=== PATIENT | female | born 1995 | race Hispanic/Latino ===

== ENCOUNTER 2017-06-10 20:04 | Emergency (ER) | payer BC, OTHER ==
[2017-06-10 20:27] LABS: Bilirubin Negative (Negative); Blood, Urine Negative (Negative); Clarity CLEAR (Clear); Glucose, Urine (Dipstick) Negative (Negative); Leukocyte Negative (Negative); Nitrite Negative (Negative); Protein, Urine (Dipstick) Negative (Neg-Trace); Specific Gravity, Urine 1.028 (1.002-1.036); Urobilinogen 0.2 mg/dL (0.2-1.0); pH, Urine 6.5 (5.0-9.0)
[2017-06-10 20:29] LABS: Pregnancy Test - Urine (BHCG) Negative (Negative); Pregu Control Background? CLEAR/WHITE (CLR/WHITE); Pregu Control Bar Appear? YES (CONTROL BAR); Specific Gravity 1.028 (1.002-1.036)
[2017-06-10 23:04] LABS: #Lymphocytes 0.9 thou/uL (1.20-3.40); #Monocytes 0.4 thou/uL (0.11-0.59); #Neutrophils 7.6 thou/uL (1.40-6.50); %Basophils 0.1 % (0.0-1.0); %Eosinophils 0.2 % (0.0-10.0); %Lymphocytes 10.2 % (28.0-48.0); %Monocytes 4.8 % (0.0-4.0); %Neutrophils 84.8 % (31.0-61.0); Hemoglobin 14.1 g/dL (12.0-16.0); Mean Corpuscular HGB CONC 34.6 g/dL (32.0-36.0); Mean Corpuscular Hemoglobin 29.5 pg (25.0-35.0); Mean Corpuscular Volume 85.3 fl (77.0-87.0); Mean Platelet Volume 7.1 fL (7.4-10.4); Platelet Count 300 thou/uL (130-400); RBC Distribution Width 12.3 % (11.5-14.5); Red Blood Cell (RBC) Count 4.78 mill/uL (4.00-5.20); White Blood Cell (WBC) Count 8.9 thou/uL (4.8-10.8)
[2017-06-10] MEDS ORDERED: Ketorolac Tromethamine 30 MG/ML VIAL ONE (23:15)
[2017-06-10 23:21] LABS: ALT (SGPT) 14 U/L (8-55); AST (SGOT) 16 U/L (5-34); Albumin 4.3 g/dL (3.5-5.0); Alkaline Phosphatase 137 U/L (40-150); Anion Gap 14 mmol/L (10-20); BUN (Urea Nitrogen) 8 mg/dL (7.0-18.7); Bilirubin, Total 0.6 mg/dL (0.2-1.2); Calc. Creatinine Clearance 0 mL/min (70-130); Calcium 9.1 mg/dL (7.8-10.44); Carbon Dioxide 20 mmol/L (22-29); Chloride 106 mmol/L (98-107); Estimated GFR-MDRD Greater than 90; Globulin 3.3 g/dL (2.4-3.5); Glucose 119 mg/dL (70-105); Potassium 3.9 mmol/L (3.5-5.1); Protein, Total 7.6 g/dL (6.0-8.3); Sodium 136 mmol/L (136-145)
== END 2017-06-11 00:42 | disposition home or self-care (01) ==
LOC: ERS 20:04
DX: B34.9 Viral infection, unspecified (principal)
CPT/HCPCS: 36415; 80053; 81003; 81025; 85025; 96361; 96374; J1885

== ENCOUNTER 2018-04-25 14:57 | Day surgery (SDC) | payer OTHER ==
[2018-04-25 15:34] VITALS: BP 127/69; TEMP 98.8; BMI 30.1
--- NOTE | 2018-04-25 15:37 | PDOC.LDHP ---
Labor and Delivery H&P HPI: Sent from [facility] by Dr Armenta for FFN results, collected from clinic Patient is a 23 yo HF at 33 weeks 3 days by LMP and first trimester sono , here for follow up from OBGYN. Was 1cm in clinic (/). Feels "pops" in her pubic bone. Some decresaed FM but now normal. Few contractions, few today. No LOF, No VB Review of Systems: Anemia in Grav: 3 Para: 1 Current complications: none Abnormal US findings: No Past Medical History: Anemia Past [employer]: BV treated Current medications: pre-agnes vitamins, iron Previous surgical history: other (Eye surgery as child (age 6)) Allergies/Adverse Reactions: Allergies Allergy/AdvReac Type Severity Reaction Status Date / Time Penicillins Allergy Unknown Verified 04/25/18 15:35 - Physical Exam Vital signs reviewed and normal: yes (98.8 101 127/69) General: NAD Heart: RRR Lungs: CTAB Abdomen: other (no CVAT, no deformities) Extremeties: no edema FHT: category 1 (140s) [place] contractions every: rare - OB Labs Blood type: O (pos) Additional Labs: FFN negative today - Assessment Multip at 33 weeks with discomforts of preg vs laxity of joints (prob mild sympisus diastasis). FFN negative. At age 18, questionable "pelvic injury" after fall. Possible fractured coccyx in past. Here for Hydration. Urine was negative in clinic. Dr armenta has scheduled an outpatient XRay of pelvis one shot - Plan Plan: observation in L&D (1 liter LR; NST ordered; FFN negative and under 2cm so PTL not likely. Will get single shot pubic film for eval oif her complaint.)
[2018-04-25] MEDS ORDERED: Lactated Ringer's 1,000 ML IV SCH (15:45)
--- NOTE | 2018-04-25 16:05 | PDOC.EVN ---
Event Note - Event Note Event Note: One shot pubic film done...I saw the image...no gross abnormalities (pending formal read). I reassured the patient that a one shot image has no risks. Patient ok with test. IVF hydation in use Doing well
--- NOTE | 2018-04-25 17:11 | RAD ---
AP PELVIS ONE VIEW: 04/25/18 HISTORY: Evaluate for pubic diastasis. FINDINGS/IMPRESSION: Pubic symphysis is 0.7 cm gap, minimally widened. Single intrauterine gestation is apparent in cephalic presentation. POS: [facility]
--- NOTE | 2018-04-25 17:22 | PDOC.EVN ---
Event Note - Event Note Event Note: Radiology read is normal
== END 2018-04-25 17:21 | disposition home or self-care (01) ==
LOC: L&D/OP 14:57
PROVIDERS: ATTEND Obstetrics & Gynecology
DX: O47.03 False labor before 37 completed weeks of gestation, third trimester (principal); O99.013 Anemia complicating pregnancy, third trimester; Z88.0 Allergy status to penicillin; Z3A.33 33 weeks gestation of pregnancy
CPT/HCPCS: 72170

== ENCOUNTER → 2018-05-18 | Day surgery (SDC) | payer OTHER ==
[2018-05-18 06:04] VITALS: BP 108/62; TEMP 98.2; BMI 31.8
--- NOTE | 2018-05-18 06:22 | PDOC.LDHP ---
Labor and Delivery H&P Chief complaint: contractions, decreased movement HPI: 23 yo @ 36.4 presents for decreased movment. Pt reports she has had sporadic painful contractions sine last Saturday, but they have decreased in severity and frequency; however, this AM she reports occasional ctx and noted decreased FM overnight when she would wake up to use the restroom. She also noted some pressure earlier in the morning. Currently, pt reports resolution of pressure, decreasing ctx frequency and reports she has pos movement now. Denies LOF, vaginal bleeding and vaginal discharge. Of note, no palpable ctx or detectable ctx by external monitors. Current gestational age (weeks): 36 (36.4) Due date: 06/11/18 Dating criteria: last menstrual period, first trimester ultrasound Grav: 3 Para: 1 (1011) Current complications: none Abnormal US findings: No Current medications: pre- vitamins Previous surgical history: none Allergies/Adverse Reactions: Allergies Allergy/AdvReac Type Severity Reaction Status Date / Time Penicillins Allergy Unknown Verified 04/25/18 15:35 Social history: none - Physical Exam Vital signs reviewed and normal: yes General: NAD, resting Heart: RRR Lungs: nonlabored breathing Abdomen: gravid (NNTP, Normoactive BSX4) Extremeties: trace edema FHT: category 1 (Baseline 140s pos accels, no late or variable decels. Mod variaibility. Reactive.), variability present [place] contractions every: None - OB Labs Blood type: O RH: positive Antibody Screen: negative HIV: negative RPR: negative HEPSAg: negative 1 hour GCT: negative GBS: negative Urine drug screen: negative Rubella: immune - Assessment 1) Decreased movement, resolved - strip reactive and pt now reports normal movement - will continue to monitor to ensure no contractions although thus far none detected by ext monitor and none palpated Dispo: stable, will monitor and plan for DC to home if no ctx over next 30 minutes. PO hydrate. Addendum - Attending - Attending Attestation Date/Time: 05/20/181999 I personally evaluated the patient and discussed the management with Dr. Davidson. I agree with the History, Examination, Assessment and Plan documented above.
== END ==
LOC: L&D/OP 05:32
PROVIDERS: ATTEND Obstetrics & Gynecology
DX: O36.8130 Decreased fetal movements, third trimester, not applicable or unspecified (principal); Z3A.36 36 weeks gestation of pregnancy; Z79.899 Other long term (current) drug therapy; Z88.0 Allergy status to penicillin

== ENCOUNTER 2018-05-28 15:07 | Day surgery (SDC) | payer OTHER ==
[2018-05-28 15:39] VITALS: BP 112/69; TEMP 98.6
[2018-05-28 15:42] VITALS: BMI 32.2
--- NOTE | 2018-05-28 16:32 | PDOC.LDHP ---
Labor and Delivery H&P Chief complaint: contractions HPI: 23 y/o at 38w4d, patient of Dr. Kwan, presents with ctx and dizziness today. Was checked in clinic today and 3-4 cm, has been walking all day and not eating/drinking. Denies VB, LOF, or decreased FM. ROS neg for HEENT, cv, pulm, gi, gu, neuro, psych, musculoskeletal, skin or constitutional symptoms other than mentioned above. OB History Details: 1 prior term Current complications: none Current medications: pre- vitamins Previous surgical history: other (eye surgery) Allergies/Adverse Reactions: Allergies Allergy/AdvReac Type Severity Reaction Status Date / Time Penicillins Allergy Unknown Verified 05/28/18 15:41 Social history: none - Physical Exam Vital signs reviewed and normal: yes General: NAD, resting Lungs: nonlabored breathing Abdomen: gravid Extremeties: no edema FHT: category 1 (130s, mod variability, + accels, no decels) [place] contractions every: intermittent - Vaginal Exam cm dilated: 3 Effacement: 50% Station: -1 - Assessment 23 y/o at 38w0d with no e/o active labor. status reassuring with reactive NST. - Plan -: D/c home with precautions and advised to keep appointments,. Next appointment tomorrow.
== END 2018-05-28 16:10 | disposition home or self-care (01) ==
LOC: L&D/OP 15:07
PROVIDERS: ATTEND Obstetrics & Gynecology
DX: O47.1 False labor at or after 37 completed weeks of gestation (principal); Z3A.38 38 weeks gestation of pregnancy; Z88.0 Allergy status to penicillin; Z79.899 Other long term (current) drug therapy
CPT/HCPCS: 99282

== ENCOUNTER 2018-06-05 05:30 | Inpatient (IN) | payer OTHER ==
--- NOTE | 2018-06-04 13:13 | PDOC.LDHP ---
Labor and Delivery H&P Chief complaint: scheduled induction HPI: 23 yo @ 39w1d by LMP c/w 11 week CRL who presents for EIOL. Antepartum course complicated by mild anemia, on iron. Current gestational age (weeks): 39 Due date: 06/11/18 Dating criteria: last menstrual period Grav: 3 Para: 1 OB History Details: 1 term 1 SAB Current complications: none Abnormal US findings: No Past Medical History: Anemia Current medications: pre-agnes vitamins, iron, other (Nexium) Previous surgical history: other (Eye surgery) Allergies/Adverse Reactions: Allergies Allergy/AdvReac Type Severity Reaction Status Date / Time Penicillins Allergy Unknown Verified 06/05/18 05:57 Social history: none - Physical Exam Vital signs reviewed and normal: yes General: NAD Heart: RRR Lungs: nonlabored breathing Abdomen: gravid Extremeties: no edema - Vaginal Exam cm dilated: 5 (cephalic; AROM clear ) Effacement: 75% Station: -1 - OB Labs Blood type: O RH: positive Antibody Screen: negative HIV: negative RPR: negative HEPSAg: negative 1 hour GCT: negative GBS: negative Urine drug screen: negative Rubella: non-immune - Assessment 39w1d IUP Elective induction Anemia Rubella non-immune - Plan Plan: admit to L&D, informed consent obtained, anesthesia consult for pain management -: Start pitocin MMR PP
[2018-06-05] MEDS ORDERED: Misoprostol 200 MCG TAB PR PRN (05:55)
[2018-06-05] MEDS ORDERED: Methylergonovine 0.2 MG/ML VIAL IM PRN (05:55)
[2018-06-05] MEDS ORDERED: Butorphanol Tartrate 1 MG/ML VIAL SLOW IVP PRN (05:55)
[2018-06-05] MEDS ORDERED: Acetaminophen 500 MG TAB PO PRN (05:55)
[2018-06-05] MEDS ORDERED: Diphenoxylate HCl/Atropine Tablet PO PRN (05:55)
[2018-06-05] MEDS ORDERED: Lidocaine 1% (PF) 30 ML VIAL SC PRN (05:55)
[2018-06-05] MEDS ORDERED: Ondansetron PF 4 MG/2 ML Vial IVP PRN ×2 (05:55→09:39)
[2018-06-05] MEDS ORDERED: Carboprost 250 MCG/ML AMP IM PRN (05:55)
[2018-06-05] MEDS ORDERED: Ibuprofen 800 MG TAB PO PRN (05:55)
[2018-06-05] MEDS ORDERED: NS w/ Oxytocin 10 units 500 ML IV SCH (05:55)
[2018-06-05] MEDS ORDERED: Promethazine HCl 25 MG/ML VIAL IM PRN ×2 (05:55→09:39)
[2018-06-05] MEDS ORDERED: NS / Oxytocin 40 units/1000ml 1,000 ML IV PRN (05:55)
[2018-06-05] MEDS ORDERED: HYDROcodone/Acetaminophen 5/325 mg Tablet PO PRN ×2 (05:55→10:58)
[2018-06-05 05:59] VITALS: BMI 32.2
[2018-06-05] MEDS: Lactated Ringer's 1,000 ML IV SCH ×2 (06:00→08:59)
[2018-06-05 06:17] LABS: Hemoglobin 10.1 g/dL (12.0-16.0); Mean Corpuscular HGB CONC 32.4 g/dL (32.0-36.0); Mean Corpuscular Hemoglobin 26.5 pg (27.0-31.0); Mean Corpuscular Volume 81.9 fL (78.0-98.0); Mean Platelet Volume 7.8 fL (7.4-10.4); Platelet Count 337 thou/uL (130-400); RBC Distribution Width 13.4 % (11.5-14.5); Red Blood Cell (RBC) Count 3.81 mill/uL (4.20-5.40)
[2018-06-05 07:00] LABS: Syphilis Antibody Nonreactive (Nonreactive); Syphilis Antibody Index 0.09 S/CO (<1.00 Non-Reactive)
[2018-06-05 07:01] LABS: HBSAg Index 0.27 S/CO (0-0.99); HIV (1/2) Antibody/Antigen Non-Reactive (NonReactive); HIV 1/2 INDEX 0.08 S/CO (<1.00); Hep B Surf Ag Non-Reactive S/CO (NonReactive)
[2018-06-05] MEDS ORDERED: Lidocaine 2% 10 ML INJ ONE (08:08)
[2018-06-05] MEDS ORDERED: Fentanyl 4 mcg/Bup 0.1% Cadd 100 ML ONE (08:09)
[2018-06-05] MEDS ORDERED: Naloxone HCl 0.4 mg/ml Vial IVP PRN ×2 (09:39)
[2018-06-05] MEDS ORDERED: diphenhydrAMINE 50 MG/ML VIAL IVP PRN (09:39)
[2018-06-05] MEDS ORDERED: Eucerin (Mineral Oil/Petrolatum,White) 30 gm Jar TOP PRN (09:39)
[2018-06-05] MEDS ORDERED: Lactated Ringer's 500 ML IV PRN (09:39)
[2018-06-05] MEDS ORDERED: ePHEDrine/0.9% NaCl/PF SYRINGE 50 mg/10 ml SLOW IVP PRN (09:39)
[2018-06-05] MEDS ORDERED: Acetaminophen 325 MG TAB PO PRN (09:39)
[2018-06-05] MEDS ORDERED: Fentanyl 4 mcg/Bupivacaine 0.1% Cassette 100 ML EPIDURAL SCH (09:45)
[2018-06-05] MEDS ORDERED: Communication Order-Pharmacy FS SCH (09:45)
--- NOTE | 2018-06-05 10:36 | PDOC.OPDEL ---
OB Operative/Delivery Note Delivery Dr/Surgeon: Meryl Kwan DO Pre-Delivery Diagnosis: elective induction Procedure/Post Delivery Dx: spontaneous vaginal delivery Weeks gestation: 39 Anesthesia: epidural - Findings A Sex: female - 1 min: 9 - 5 min: 9 - Additional Findings/Plan Placenta delivered: spontaneous Repaired Obstetrical Laceration: none Estimated blood loss: EBL 100 cc; QBL 269 cc Compilations/Other Findings: in cephalic presentation, BRIANNA position. Clear amniotic fluid Normal appearing placenta Post delivery plan: routine recovery
[2018-06-05] MEDS ORDERED: Measles/Mumps/Rubella 10 MCG/0.5 ML VIAL SC ONE (10:58)
[2018-06-05] MEDS ORDERED: NS / Oxytocin 40 units/1000ml 1,000 ML IV SCH (10:58)
[2018-06-05] MEDS ORDERED: Bisacodyl 10 MG SUPP PR PRN (10:58)
[2018-06-05] MEDS ORDERED: Benzocaine-Menthol 82.5 ML CAN TOP PRN (10:58)
[2018-06-05] MEDS ORDERED: diphenhydrAMINE 25 MG CAP PO PRN (10:58)
[2018-06-05] MEDS ORDERED: Preparation H Ointment 28 GM TUBE PR PRN (10:58)
[2018-06-05] MEDS ORDERED: Milk Of Magnesia 30 ML UDCUP PO PRN (10:58)
[2018-06-05] MEDS ORDERED: Lanolin Ointment 7 GM TUBE TOP PRN (10:58)
[2018-06-05] MEDS: Ibuprofen 800 MG TAB PO SCH ×2 (13:25→20:42)
[2018-06-05] MEDS: Ferrous Sulfate 325 MG TAB PO SCH (17:00)
[2018-06-05] MEDS: Docusate Calcium (SURFAK) 240 MG CAP PO SCH (20:42)
[2018-06-06] MEDS: Calcium Carbonate 500 MG ChewTAB PO PRN ×2 (02:48→08:20)
[2018-06-06] MEDS: Lactated Ringer's 1,000 ML IV SCH ×3 (06:40→11:51)
[2018-06-06] MEDS: Ibuprofen 800 MG TAB PO SCH ×2 (06:41→13:41)
[2018-06-06 07:33] VITALS: BP 112/57; TEMP 98.1
[2018-06-06] MEDS: Ferrous Sulfate 325 MG TAB PO SCH (07:52)
--- NOTE | 2018-06-06 08:05 | PDOC.PP ---
Post Progress Note Post Day #: 1 Subjective: No concerns. Breast feeding. Minimal lochia and pain. Voiding. PO intake tolerated: yes Flatus: yes Ambulation: yes Vital Signs (12 hours) Temp Pulse Resp BP Pulse Ox 06/06/18 07:32 98.1 F 65 20 112/57 L 98 06/06/18 00:00 97.6 F 81 16 112/56 L Weight Weight 182 lb - Physical Examination General: NAD Cardiovascular: RRR Respiratory: non-labored breathing Abdominal: no distention, appropriately TTP Extremities: negative homans (B) Neurological: no gross focal deficits Psychiatric: A&Ox3, normal affect Result Diagrams: 06/05/18 06:08 Additional Labs: Post Labs Blood Type O POSITIVE 06/05/18 06:08 Hep Bs Antigen Non-Reactive S/CO (NonReactive) 06/05/18 06:08 (1) Vaginal delivery following previous section, delivered Code(s): O34.219 - MATERNAL CARE FOR UNSP TYPE SCAR FROM PREVIOUS DEL Status: Acute (2) Anemia Code(s): D64.9 - ANEMIA, UNSPECIFIED Status: Acute Qualifiers: Anemia type: iron deficiency Iron deficiency anemia type: inadequate dietary iron intake Qualified Code(s): D50.8 - Other iron deficiency anemias - Assessment/Plan PPD1 VSSAF Plan for d/c home today with infant. Meeting requirements for d/c. PP CBC still pending, however, minimal EBL and chronic mild anemia prior to delivery. Continue Fe PP MMR prior to d/c
[2018-06-06] MEDS: Docusate Calcium (SURFAK) 240 MG CAP PO SCH (08:20)
[2018-06-06] MEDS ORDERED: Prenatal Vitamin 1 TAB PO SCH (09:00)
[2018-06-06 09:04] LABS: Hemoglobin 10.4 g/dL (12.0-16.0); Mean Corpuscular HGB CONC 32.4 g/dL (32.0-36.0); Mean Corpuscular Hemoglobin 27.5 pg (27.0-31.0); Mean Corpuscular Volume 84.7 fL (78.0-98.0); Mean Platelet Volume 7.9 fL (7.4-10.4); Platelet Count 302 thou/uL (130-400); RBC Distribution Width 13.5 % (11.5-14.5); Red Blood Cell (RBC) Count 3.79 mill/uL (4.20-5.40); White Blood Cell (WBC) Count 8.7 thou/uL (4.8-10.8)
== END 2018-06-06 15:10 | disposition home or self-care (01) | DRG 807 ==
LOC: L&D 05:34 → 3SW 13:39
PROVIDERS: ADMIT Obstetrics & Gynecology; ATTEND Obstetrics & Gynecology
PROC: 10E0XZZ Delivery of Products of Conception, External Approach (ICD-10-PCS; principal; 2018-06-05)
DX: O99.02 Anemia complicating childbirth (principal); Z37.0 Single live birth; Z3A.39 39 weeks gestation of pregnancy; D50.8 Other iron deficiency anemias
CPT/HCPCS: 36415; 51702; 85027; 86780; 86850; 86900; 86901; 87340; 87389; 90707; J0595; J2001

== ENCOUNTER 2018-06-24 17:31 | Emergency (ER) | payer OTHER ==
[2018-06-24] MEDS ORDERED: Ibuprofen 800 MG TAB ONE ×2 (18:53→21:19)
[2018-06-24 19:08] LABS: #Lymphocytes 1.2 thou/uL (1.20-3.40); #Monocytes 0.5 thou/uL (0.11-0.59); #Neutrophils 9.4 thou/uL (1.40-6.50); %Basophils 0.1 % (0.0-1.0); %Eosinophils 0.4 % (0.0-10.0); %Lymphocytes 10.5 % (21.0-51.0); %Monocytes 4.6 % (0.0-10.0); %Neutrophils 84.5 % (42.0-75.0); Hemoglobin 12.9 g/dL (12.0-16.0); Mean Corpuscular HGB CONC 32.5 g/dL (32.0-36.0); Mean Corpuscular Hemoglobin 27.4 pg (27.0-31.0); Mean Corpuscular Volume 84.1 fL (78.0-98.0); Mean Platelet Volume 7.8 fL (7.4-10.4); Platelet Count 286 thou/uL (130-400); RBC Distribution Width 14.5 % (11.5-14.5); Red Blood Cell (RBC) Count 4.72 mill/uL (4.20-5.40); White Blood Cell (WBC) Count 11.2 thou/uL (4.8-10.8)
--- NOTE | 2018-06-24 19:10 | RAD ---
Radiograph chest one view: HISTORY: 23-year-old female with sepsis FINDINGS: The visualized lung [place] are clear. The cardiomediastinal silhouette is normal. No pneumothorax. IMPRESSION: No acute cardiopulmonary findings.
[2018-06-24 19:28] LABS: ALT (SGPT) 23 U/L (8-55); AST (SGOT) 17 U/L (5-34); Albumin 4.2 g/dL (3.5-5.0); Alkaline Phosphatase 125 U/L (40-150); Anion Gap 16 mmol/L (10-20); BUN (Urea Nitrogen) 14 mg/dL (7.0-18.7); Bilirubin, Total 0.5 mg/dL (0.2-1.2); Calc. Creatinine Clearance 0 mL/min (70-130); Calcium 9.3 mg/dL (7.8-10.44); Carbon Dioxide 19 mmol/L (22-29); Chloride 105 mmol/L (98-107); Estimated GFR-MDRD Greater than 90; Globulin 3.5 g/dL (2.4-3.5); Glucose 107 mg/dL (70-105); Potassium 3.8 mmol/L (3.5-5.1); Protein, Total 7.7 g/dL (6.0-8.3); Sodium 136 mmol/L (136-145)
--- NOTE | 2018-06-24 20:28 | ULT ---
Ultrasound left breast limited: 06/24/2018 HISTORY: 23-year-old female with left breast pain, erythema, and swelling. Rule out abscess. TECHNIQUE: Ultrasound scanning of the area of concern, from 12:00 to 3:00 position. Ultrasound scanning of the subareolar region. FINDINGS: In the retroareolar region, there are numerous dilated ducts. The caliber of the largest duct is brenda ured as 7 mm. Otherwise, there is no other focal fluid collection to indicate abscess in the left upper outer quadrant. IMPRESSION: 1. Retroareolar ductal ectasia. 2. No abscess identified in the left upper quadrant.
[2018-06-24] MEDS ORDERED: Clindamycin 150 MG CAP PO SCH (21:30)
[2018-06-24] MEDS ORDERED: Clindamycin 150 MG CAP ONE (21:42)
[2018-06-24 21:57] LABS: Bilirubin Negative (Negative); Blood, Urine Negative (Negative); Clarity CLEAR (Clear); Glucose, Urine (Dipstick) Negative (Negative); Leukocyte Moderate (Negative); Nitrite Negative (Negative); Protein, Urine (Dipstick) Negative (Neg-Trace); Specific Gravity, Urine 1.011 (1.002-1.036); Urobilinogen 0.2 mg/dL (0.2-1.0)
[2018-06-24 22:05] LABS: Bacteria/HPF None Seen HPF (None Seen); Hyaline Casts/LPF 0-3 HYALINE CAST LPF (0-3 Hyaline); RBC/HPF 0-3 HPF (0-3); Squamous Epithelial 0-3 HPF (0-3)
[2018-06-24 22:46] LABS: Lactic Acid 0.6 mmol/L (0.5-2.2)
== END 2018-06-24 23:26 | disposition home or self-care (01) ==
LOC: ERS 17:31
DX: N64.4 Mastodynia (principal); Z87.442 Personal history of urinary calculi
CPT/HCPCS: 36415; 71045; 80053; 81003; 81015; 83605; 85025; 87040; 87070; 87086; 87205; 93005; 94760; 96360; 96361

== ENCOUNTER 2018-12-23 18:34 | Day surgery (SDC) | payer OTHER, SELFPAY ==
[2018-12-23] MEDS ORDERED: Morphine 4 MG/ML VIAL ONE (19:00)
[2018-12-23] MEDS ORDERED: Ondansetron PF 4 MG/2 ML Vial ONE ×2 (19:01→19:31)
[2018-12-23 19:13] LABS: #Lymphocytes 1.5 thou/uL (1.20-3.40); #Monocytes 0.8 thou/uL (0.11-0.59); #Neutrophils 14.1 thou/uL (1.40-6.50); %Basophils 0.2 % (0.0-1.0); %Eosinophils 0.1 % (0.0-10.0); %Lymphocytes 9.2 % (21.0-51.0); %Monocytes 4.5 % (0.0-10.0); Hemoglobin 13.9 g/dL (12.0-16.0); Mean Corpuscular HGB CONC 35.3 g/dL (32.0-36.0); Mean Corpuscular Hemoglobin 29.5 pg (27.0-31.0); Mean Corpuscular Volume 83.7 fL (78.0-98.0); Mean Platelet Volume 7.6 fL (7.4-10.4); Platelet Count 284 thou/uL (130-400); RBC Distribution Width 12.2 % (11.5-14.5); Red Blood Cell (RBC) Count 4.71 mill/uL (4.20-5.40); White Blood Cell (WBC) Count 16.4 thou/uL (4.8-10.8)
[2018-12-23] MEDS ORDERED: MEROPENEM 1 GM/50 ML 1 GM in Premix Bag 1 BAG IVPB SCH (19:15)
[2018-12-23 19:30] LABS: BHCG - Serum Negative (NEGATIVE); Pregs Control Background? CLEAR/WHITE (CLR/WHITE); Pregs Control Bar Appear? YES (CONTROL BAR)
[2018-12-23] MEDS ORDERED: Rocuronium Bromide 10 MG/ML (10ML VIAL) ONE (19:31)
[2018-12-23] MEDS ORDERED: Glycopyrrolate 0.2 MG/ML 5 ML SYRINGE ONE (19:31)
[2018-12-23] MEDS ORDERED: PROPOFOL 200 MG/20 ML VIAL ONE (19:31)
[2018-12-23] MEDS ORDERED: Esmolol 100 MG/10 ML VIAL ONE (19:31)
[2018-12-23] MEDS ORDERED: ePHEDrine 50 MG/ML VIAL ONE (19:31)
[2018-12-23] MEDS ORDERED: PHENYLEPHRINE-NS 100 MCG/ML 10 ML SYRINGE ONE (19:31)
[2018-12-23] MEDS ORDERED: Lidocaine 1% PF 5 ML VIAL ONE (19:31)
[2018-12-23] MEDS ORDERED: Dexamethasone 20 MG/5 ML VIAL ONE (19:31)
[2018-12-23 19:34] LABS: ALT (SGPT) 13 U/L (8-55); AST (SGOT) 13 U/L (5-34); Albumin 4.8 g/dL (3.5-5.0); Alkaline Phosphatase 139 U/L (40-110); Anion Gap 18 mmol/L (10-20); BUN (Urea Nitrogen) 8 mg/dL (7.0-18.7); Bilirubin, Total 0.9 mg/dL (0.2-1.2); Calc. Creatinine Clearance 0 mL/min (70-130); Calcium 9.9 mg/dL (7.8-10.44); Carbon Dioxide 21 mmol/L (22-29); Chloride 103 mmol/L (98-107); Estimated GFR-MDRD Greater than 90; Globulin 3.7 g/dL (2.4-3.5); Glucose 121 mg/dL (70-105); Potassium 3.7 mmol/L (3.5-5.1); Protein, Total 8.5 g/dL (6.0-8.3); Sodium 138 mmol/L (136-145)
--- NOTE | 2018-12-23 19:57 | CT ---
CT OF THE ABDOMEN AND PELVIS WITH IV CONTRAST INDICATION: Right lower quadrant abdominal pain COMPARISON: Noncontrast CT the abdomen and pelvis dated August 27, 2014. FINDINGS: ABDOMEN: Lung bases: Clear Liver: No focal lesion. Gallbladder: Normal appearing. Pancreas: Normal. Adrenal glands: Normal. Spleen: Normal. Kidneys and ureters: Normal. No hydronephrosis. Vasculature: Normal. Lymph nodes:No lymphadenopathy. Free fluid in abdomen:No free fluid is evident. PELVIS: Small and large bowel: Normal Appendix:Dilated, measuring 14.8 mm. There is a 9 mm appendicolith at the base of the appendix. No dr day fluid collection is evident. Bladder: Normal. Rectal and perirectal soft tissues:Normal. Reproductive structures: Normal. Free fluid in pelvis: Mild free fluid Lymphadenopathy pelvis: No lymphadenopathy is evident. Osseous structures: No acute osseous abnormality. No destructive osteolytic or osteoblastic lesion i s identified. Soft tissues:Normal. IMPRESSION: 1. Findings of noncomplicated acute appendicitis. There is an appendicolith at the base of the append ix measuring 9 mm. 2. Findings called to Dr. Tano santana at 7:52 PM on 02/22/2019.
[2018-12-23] MEDS ORDERED: Bupivacaine/Epinephrine 0.25% 30 ML VIAL ONE (20:35)
[2018-12-23] MEDS ORDERED: Fentanyl 100 MCG/2 ML VIAL ONE ×2 (21:21→23:19)
[2018-12-23] MEDS ORDERED: HYDROcodone/Acetaminophen 5/325 mg Tablet ONE (23:02)
--- NOTE | 2018-12-24 12:57 | OP ---
DATE OF PROCEDURE: 12/23/2018 PREOPERATIVE DIAGNOSIS: Acute appendicitis. POSTOPERATIVE DIAGNOSIS: Acute appendicitis. PROCEDURE PERFORMED: Laparoscopic appendectomy. ANESTHESIA: General endotracheal. INDICATIONS: The patient is a 23-year-old female. She presented to the emergency room with findings consistent with acute appendicitis, taken to the operating room at this time for appendectomy. DESCRIPTION OF PROCEDURE: Informed consent was obtained. The patient was taken to the operating room, where general endotracheal anesthesia was obtained with the patient in supine position. Abdomen was prepped with ChloraPrep and draped in sterile fashion. Local anesthetic was infiltrated using 0.25% Marcaine with epinephrine and a 5-mm infraumbilical incision was created through which a Veress needle was passed into the peritoneal cavity and pneumoperitoneum was established using carbon dioxide up to pressure of 15 mmHg. A 5-mm trocar port site was established using same incision. Laparoscopic camera was passed this port. Under direct vision, 2 additional ports were placed including a 5-mm left lower quadrant port and a 12-mm suprapubic port. Attention was turned to the right lower quadrant. The patient had obvious acute appendicitis. Omental adhesions were bluntly stripped away from the appendix. The mesoappendix was grasped and taken down using electrocautery to skeletonize the base of the appendix. The base of the appendix showed minimal evidence of inflammation and no substantial dilatation. I therefore decided to divide it at that level between PDS Endoloop ties. The appendiceal stump was cauterized. The appendix was placed in a specimen retrieval sac and removed through the suprapubic port. The fascia was closed with 0 Vicryl suture using a GraNee needle. There was no evidence of perforation, however, the right lower quadrant and pelvis were thoroughly irrigated and all irrigant was aspirated. All ports and instruments were removed under direct vision. Pneumoperitoneum was carefully evacuated. A 0.25% Marcaine with epinephrine was infiltrated at each port site. Skin edges were approximated with 4-0 Monocryl subcuticular suture. Dermabond was placed externally. There were no complications. The patient tolerated the procedure well and was taken to recovery room in stable condition. Job ID: [id number]
== END 2018-12-23 23:59 | disposition home or self-care (01) ==
LOC: ERS 18:34 → SDC 20:39
PROVIDERS: ATTEND Specialist
PROC: 0DTJ4ZZ Resection of Appendix, Percutaneous Endoscopic Approach (ICD-10-PCS; principal; 2018-12-23)
DX: K35.80 Unspecified acute appendicitis (principal); Z87.442 Personal history of urinary calculi; Z88.0 Allergy status to penicillin
CPT/HCPCS: 74177; 80053; 83605; 84703; 85025; 88304; 96365; 96375; J1100; J2001; J2185; J2270; J2405; J2704; J3010; J3490

== ENCOUNTER 2019-08-22 10:30 | Emergency (ER) | payer OTHER ==
[2019-08-22 11:50] LABS: #Basophils 0.1 thou/uL (0.0-0.2); #Lymphocytes 1.9 thou/uL (1.20-3.40); #Monocytes 0.3 thou/uL (0.11-0.59); #Neutrophils 4.2 thou/uL (1.40-6.50); %Basophils 1.2 % (0.0-1.0); %Eosinophils 0.5 % (0.0-10.0); %Lymphocytes 29.6 % (21.0-51.0); %Monocytes 4.1 % (0.0-10.0); %Neutrophils 64.6 % (42.0-75.0); Hemoglobin 14.7 g/dL (12.0-16.0); Mean Corpuscular HGB CONC 35.4 g/dL (32.0-36.0); Mean Corpuscular Hemoglobin 31.2 pg (27.0-31.0); Mean Platelet Volume 7.8 fL (7.4-10.4); Platelet Count 261 thou/uL (130-400); RBC Distribution Width 11.4 % (11.5-14.5); Red Blood Cell (RBC) Count 4.71 mill/uL (4.20-5.40); White Blood Cell (WBC) Count 6.4 thou/uL (4.8-10.8)
[2019-08-22 11:52] LABS: BHCG - Serum Negative (NEGATIVE); Pregs Control Background? CLEAR/WHITE (CLR/WHITE); Pregs Control Bar Appear? YES (CONTROL BAR)
[2019-08-22 12:11] LABS: ALT (SGPT) 19 U/L (8-55); AST (SGOT) 17 U/L (5-34); Albumin 4.4 g/dL (3.5-5.0); Alkaline Phosphatase 103 U/L (40-110); Anion Gap 14 mmol/L (10-20); BUN (Urea Nitrogen) 8 mg/dL (7.0-18.7); Bilirubin, Total 0.3 mg/dL (0.2-1.2); Calc. Creatinine Clearance 0 mL/min (70-130); Calcium 9.1 mg/dL (7.8-10.44); Carbon Dioxide 22 mmol/L (22-29); Chloride 108 mmol/L (98-107); Estimated GFR-MDRD Greater than 90; Globulin 3.6 g/dL (2.4-3.5); Glucose 79 mg/dL (70-105); Potassium 4.1 mmol/L (3.5-5.1); Sodium 140 mmol/L (136-145)
[2019-08-22 13:33] LABS: Bilirubin Negative (Negative); Blood, Urine Negative (Negative); Clarity Clear (Clear); Glucose, Urine (Dipstick) Normal (Negative); Leukocyte Negative Leu/uL (Negative); Nitrite Negative (Negative); Protein, Urine (Dipstick) 20 mg/dL (Neg-Trace); Urobilinogen Normal mg/dL (Less than 2)
[2019-08-22] MEDS ORDERED: Ketorolac Tromethamine 30 MG/ML VIAL ONE (14:11)
[2019-08-22] MEDS ORDERED: Ondansetron PF 4 MG/2 ML Vial ONE (14:49)
[2019-08-22] MEDS ORDERED: Meclizine HCl 25 MG TAB ONE (14:49)
[2019-08-22 14:57] LABS: Hemoglobin 14.5 g/dL (12.0-16.0)
--- NOTE | 2019-08-23 10:34 | EKG ---
Test Reason : Blood Pressure : / mmHG Vent. Rate : 073 BPM Atrial Rate : 073 BPM P-R Int : 148 ms QRS Dur : 078 ms QT Int : 376 ms P-R-T Axes : 056 071 055 degrees QTc Int : 414 ms Normal sinus rhythm with sinus arrhythmia Normal ECG Confirmed by AIXA CHAPIN DO ([id number]), sound editor JAD INGRAM ([id number]) on 08/23/2019 10:34:31 AM Referred By: Confirmed By:AIXA CHAPIN DO
== END 2019-08-22 15:27 | disposition home or self-care (01) ==
LOC: ERS 10:30
DX: N92.0 Excessive and frequent menstruation with regular cycle (principal); R42 Dizziness and giddiness; D64.9 Anemia, unspecified
CPT/HCPCS: 36415; 80053; 81003; 84703; 85025; 86850; 86900; 86901; 93005; 96361; 96374; 96375; J1885; J2405

== ENCOUNTER 2020-01-12 15:03 | Emergency (ER) | payer OTHER ==
[2020-01-12 16:09] LABS: #Basophils 0.1 thou/uL (0.0-0.2); #Eosinphils 0.1 thou/uL (0.0-0.7); #Lymphocytes 2.3 thou/uL (1.20-3.40); #Monocytes 0.6 thou/uL (0.11-0.59); #Neutrophils 4.2 thou/uL (1.40-6.50); %Basophils 0.8 % (0.0-1.0); %Eosinophils 1.4 % (0.0-10.0); %Lymphocytes 32.3 % (21.0-51.0); %Neutrophils 57.5 % (42.0-75.0); Hemoglobin 13.3 g/dL (12.0-16.0); Mean Corpuscular HGB CONC 33.5 g/dL (32.0-36.0); Mean Corpuscular Hemoglobin 29.8 pg (27.0-31.0); Mean Corpuscular Volume 88.8 fL (78.0-98.0); Mean Platelet Volume 7.9 fL (7.4-10.4); Platelet Count 285 thou/uL (130-400); RBC Distribution Width 12.2 % (11.5-14.5); Red Blood Cell (RBC) Count 4.47 mill/uL (4.20-5.40); White Blood Cell (WBC) Count 7.2 thou/uL (4.8-10.8)
--- NOTE | 2020-01-12 16:16 | ULT ---
TRANSABDOMINAL PELVIC ULTRASOUND: 01/12/20 INDICATION: History of vaginal spotting. COMPARISON: None. FINDINGS: Slade scale, color doppler, m-mode doppler and spectral doppler images performed. The uterus measures 11.9 x 7.7 x 6.3 cm. There is an intrauterine gestational sac that contains a fet al pole and yolk sac. Small subchorionic hemorrhage is seen along the left lateral margin of the gest ational sac. This measures 1.7 cm in size. Cardiac activity associated with the pole and measur es 124 beats per minute. Yolk sac measures approximately 3.8 mm. Right ovary measures 3.3 x 1.7 x 1. 5 cm and demonstrate a normal flow. Left ovary measured 4.2 x 3.6 x 2.8 cm and demonstrates normal fl ow. There is a 2.2 x 1.8 x 2.3 cm complex left ovarian cyst. No free fluid is identified. The crown-rump length was 0.84 cm giving an estimated gestational age of 6 weeks and 6 days. The estimated due date is 08/31/20. Clinical age was 7 weeks and 2 days with estim ated due date of 08/28/20. IMPRESSION: 1. Single live intrauterine gestation with small subchorionic hemorrhage seen along the left lat eral margin measuring 1.7 x 2.3 x 0.4 cm. 2. No free fluid demonstrated. POS: [facility]
[2020-01-14 22:43] LABS: Chlamydia by PCR Not Detected (NotDetected); GC by PCR Not Detected (NotDetected)
== END 2020-01-12 18:51 | disposition home or self-care (01) ==
LOC: ERS 15:03
DX: O20.0 Threatened abortion (principal); O20.8 Other hemorrhage in early pregnancy; Z3A.01 Less than 8 weeks gestation of pregnancy
CPT/HCPCS: 76856; 84702; 85025; 86900; 86901; 87480; 87491; 87510; 87591; 87660; 93976